=== PATIENT | male | born 1995 | race Hispanic/Latino ===

== ENCOUNTER 2019-02-07 20:21 | Emergency (ER) | payer SELFPAY ==
[2019-02-07] MEDS ORDERED: DEXAMETHASONE 10 MG/ML VIAL ONE (21:39)
[2019-02-07] MEDS ORDERED: FAMOTIDINE 20 MG TAB ONE (21:39)
--- NOTE | 2019-02-07 21:41 | ER ---
Nurse's Notes [facility] Name: Tramaine Ansari Age: 23 yrs Sex: Male : 1995 Arrival Date: 02/07/2019 Time: 20:25 Bed 25 Private MD: Diagnosis: Urticaria Presentation: 02/07 20:36 Presenting complaint: Patient states: States he develops slight rash with fresh mowed lp1 grass; Tonight states hives to general body, itching, heart racing; States taking Benadryl x2 30 min ago. Transition of care: patient was not received from another setting of care. Onset: The symptoms/episode began/occurred just prior to arrival. Anaphylaxis evaluation, no signs or symptoms of anaphylaxis were noted. Onset of symptoms was February 07, 2019 at 20:00. Risk Assessment: Do you want to hurt yourself or someone else? Patient reports no desire to harm self or others. Initial Sepsis Screen: Does the patient meet any 2 criteria? No. Patient's initial sepsis screen is negative. Does the patient have a suspected source of infection? No. Patient's initial sepsis screen is negative. Care prior to arrival: None. 20:36 Method Of Arrival: Ambulatory lp1 20:36 Acuity: JANET 3 lp1 Historical: - Allergies: 20:37 No Known Allergies; lp1 - Home Meds: 20:37 None [Active]; lp1 - PMHx: 20:37 None; lp1 - PSHx: 20:37 shoulder sx; lp1 - Immunization history:: Adult Immunizations up to date. - Social history:: Smoking status: Patient/guardian denies using tobacco. - Ebola Screening: : No symptoms or risks identified at this time. Screenin:48 Abuse screen: Denies threats or abuse. Denies injuries from another. Nutritional aj1 screening: No deficits noted. Tuberculosis screening: No symptoms or risk factors identified. 21:52 Fall Risk None identified. aj1 Assessment: 20:48 General: Appears in no apparent distress. comfortable, Behavior is calm, cooperative, aj1 appropriate for age. Pain: Denies pain. Neuro: Level of Consciousness is awake, alert, obeys commands, Oriented to person, place, time, situation. Cardiovascular: Heart tones S1 S2 present Patient's skin is warm and dry. Respiratory: Airway is patent Respiratory effort is even, unlabored, Respiratory pattern is regular, symmetrical, Breath sounds are clear bilaterally. Denies shortness of breath. GI: No signs and/or symptoms were reported involving the gastrointestinal system. : No signs and/or symptoms were reported regarding the genitourinary system. EENT: No signs and/or symptoms were reported regarding the EENT system. Derm: Rash noted that is itchy, red, raised, urticaria. Musculoskeletal: No signs and/or symptoms reported regarding the musculoskeletal system. Circulation, motion, and sensation intact. 21:51 Reassessment: Patient appears in no apparent distress at this time. No changes from aj1 previously documented assessment. Patient and/or family updated on plan of care and expected duration. Pain level reassessed. Patient is alert, oriented x 3, equal unlabored respirations, skin warm/dry/pink. Vital Signs: 20:37 BP 112 / 84; Pulse 128; Resp 18; Temp 98.5(TE); Pulse Ox 97% on R/A; Weight 76.2 kg; lp1 Height 6 ft. 0 in. (182.88 cm); 20:47 BP 127 / 86; Pulse 108; Resp 20; Pulse Ox 99% on R/A; aj1 21:52 BP 125 / 82; Pulse 95; Resp 18; Pulse Ox 99% on R/A; aj1 20:37 Body Mass Index 22.78 (76.20 kg, 182.88 cm) lp1 ED Course: 20:25 Patient arrived in ED. am2 20:37 Triage completed. lp1 20:38 Arm band placed on right wrist. lp1 20:43 Precious Brandt, RN is Primary Nurse. aj1 20:48 Patient has correct armband on for positive identification. Bed in low position. Call aj1 light in reach. Side rails up X 1. 20:48 No provider procedures requiring assistance completed. aj1 20:51 Felipe Jansen PA is PHCP. [facility] 20:51 Timothy Lopez MD is Attending Physician. [facility] 21:53 Patient did not have IV access during this emergency room visit. aj1 Administered Medications: 21:31 Drug: Pepcid 20 mg Route: PO; aj1 21:50 Follow up: Response: No adverse reaction aj1 21:32 Drug: Decadron 10 mg Route: IM; Site: left deltoid; aj1 21:50 Follow up: Response: No adverse reaction aj1 Outcome: 21:40 Discharge ordered by . kinza 21:54 Discharged to home ambulatory. aj1 21:54 Condition: good 21:54 Discharge instructions given to patient, Instructed on discharge instructions, follow up and referral plans. medication usage, Demonstrated understanding of instructions, follow-up care, medications, Prescriptions given X 3. 21:55 Patient left the ED. aj1 Signatures: Precious Brandt RN RN aj1 Felipe Jansen PA PA jmm Pena, Laura RN RN lp1 Lydia Waller am2 Corrections: (The following items were deleted from the chart) 21:54 21:54 Discharge instructions given to patient, Instructed on discharge instructions, aj1 follow up and referral plans. medication usage, Demonstrated understanding of instructions, follow-up care, medications, Prescriptions given X 2, aj1
--- NOTE | 2019-02-07 21:41 | EDPHYS ---
Physician Documentation [facility] Name: Tramaine Ansari Age: 23 yrs Sex: Male : 1995 Arrival Date: 02/07/2019 Time: 20:25 Bed 25 Private MD: ED Physician Timothy Lopez HPI: 02/07 21:13 This 23 yrs old Male presents to ER via Ambulatory with complaints of Allergic jmm Reaction, Rash. 21:13 The patient presents with itching, rash. Onset: The symptoms/episode began/occurred jmm acutely, today. Associated signs and symptoms: Pertinent positives: hives. This is a 23 year old male with no chronic medical conditions that presents to the ED with a pruretic rash beginning earlier today. Patient attributes the symptoms to exposure of freshly cut grass. Patient states his skin is normally sensitive to heat and he will frequently develop hives. Patient denies vomiting. . Historical: - Allergies: 20:37 No Known Allergies; lp1 - Home Meds: 20:37 None [Active]; lp1 - PMHx: 20:37 None; lp1 - PSHx: 20:37 shoulder sx; lp1 - Immunization history:: Adult Immunizations up to date. - Social history:: Smoking status: Patient/guardian denies using tobacco. - Ebola Screening: : No symptoms or risks identified at this time. ROS: 21:13 Constitutional: Negative for fever, chills, and weight loss, Cardiovascular: Negative jmm for chest pain, palpitations, and edema, Respiratory: Negative for shortness of breath, cough, wheezing, and pleuritic chest pain, Abdomen/GI: Negative for abdominal pain, nausea, vomiting, diarrhea, and constipation. 21:13 Skin: Positive for rash. 21:13 All other systems are negative. Exam: 21:13 Constitutional: This is a well developed, well nourished patient who is awake, alert, jmm and in no acute distress. Head/Face: atraumatic. Eyes: EOMI, no conjunctival erythema appreciated ENT: Moist Mucus Membranes Neck: Trachea midline, Supple Chest/axilla: Normal chest wall appearance and motion. Cardiovascular: Regular rate and rhythm. No edema appreciated 21:13 Abdomen/GI: Non distended, soft Back: Normal ROM 21:13 ENT: no pharyngeal edema appreciated. 21:13 Skin: hives noted to the neck, mild erythema noted to the thighs bilaterally. 21:13 Neuro: Orientation: is normal, Mentation: is normal, Memory: is normal. 21:13 Psych: Behavior/mood is pleasant, cooperative. Vital Signs: 20:37 BP 112 / 84; Pulse 128; Resp 18; Temp 98.5(TE); Pulse Ox 97% on R/A; Weight 76.2 kg; lp1 Height 6 ft. 0 in. (182.88 cm); 20:47 BP 127 / 86; Pulse 108; Resp 20; Pulse Ox 99% on R/A; aj1 21:52 BP 125 / 82; Pulse 95; Resp 18; Pulse Ox 99% on R/A; aj1 20:37 Body Mass Index 22.78 (76.20 kg, 182.88 cm) lp1 MDM: 21:13 Patient medically screened. [facility] 21:39 Data reviewed: vital signs, nurses notes. Counseling: I had a detailed discussion with [facility] the patient and/or guardian regarding: the historical points, exam findings, and any diagnostic results supporting the discharge/admit diagnosis, the need for outpatient follow up, to return to the emergency department if symptoms worsen or persist or if there are any questions or concerns that arise at home. 21:39 ED course: Patient is alert and non toxic in appearance in the ED. patient shows no [facility] signs of resp distress in the ED. patient prescribed epipen and given strict return precautions if symptoms worsen. patient understood and agrees with the plan of care. . Administered Medications: 21:31 Drug: Pepcid 20 mg Route: PO; aj1 21:50 Follow up: Response: No adverse reaction [facility] 21:32 Drug: Decadron 10 mg Route: IM; Site: left deltoid; aj1 21:50 Follow up: Response: No adverse reaction aj Disposition: 23:15 Co-signature as Attending Physician, Timothy Lopez MD. pkl Disposition: 02/07/19 21:40 Discharged to Home. Impression: Urticaria. - Condition is Stable. - Discharge Instructions: Hives. - Prescriptions for Hydroxyzine HCl 25 mg Oral Tablet - take 1 tablet by ORAL route every 6 hours As needed; 30 tablet. Prednisone 20 mg Oral Tablet - take 3 tablet by ORAL route once daily for 5 days; 15 tablet. EpiPen 0.3 mg Injection auto- injector - inject 1 pen by INTRAMUSCULAR route as directed Inject into the outer portion of the thigh, through clothing if necessary. Indicated in the emergency treatment of allergic reactions; 1 Container. - Medication Reconciliation Form, Thank You Letter, Antibiotic Education, Prescription Opioid Use form. - Follow up: Private Physician; When: 2 - 3 days; Reason: Recheck today's complaints, Continuance of care, Re-evaluation by your physician. Signatures: Precious Brandt RN RN aj1 Timothy Lopez MD MD pkl Mickail, Joel, PA PA jmm Pena, Laura, RN RN lp1 Corrections: (The following items were deleted from the chart) 21:55 21:40 02/07/2019 21:40 Discharged to Home. Impression: Urticaria. Condition is Stable. aj1 Forms are Medication Reconciliation Form, Thank You Letter, Antibiotic Education, Prescription Opioid Use. Follow up: Private Physician; When: 2 - 3 days; Reason: Recheck today's complaints, Continuance of care, Re-evaluation by your physician. kinza
== END 2019-02-07 21:55 | disposition home or self-care (01) ==
LOC: ER 20:21
DX: L50.9 Urticaria, unspecified (principal)
CPT/HCPCS: 96372; 99283; J1100

== ENCOUNTER 2020-10-30 07:22 | Emergency (ER) | payer SELFPAY ==
[2020-10-30 08:10] LABS: Protime INR 1.01
[2020-10-30] MEDS ORDERED: LORazepam 2 MG/ML VIAL ONE ×3 (08:10→11:57)
[2020-10-30 08:16] LABS: Basophils % 0.7 % (0-1.3); Lymphocytes % 12.1 % (15.3-44.8); MPV 7.8 fL (7.6-11.3); RBC Red Blood Cell Count 5.56 M/uL (4.33-5.43)
--- NOTE | 2020-10-30 09:06 | RAD REPORT ---
EXAM DESCRIPTION: CT - Head Brain Wo Cont - 10/30/2020 8:52 am CLINICAL HISTORY: SEIZURE Headache, drowsiness, seizure COMPARISON: No comparisons TECHNIQUE: All CT scans are performed using dose optimization technique as appropriate and may inclu de automated exposure control or mA/KV adjustment according to patient size. FINDINGS: No intracranial hemorrhage, hydrocephalus or extra-axial fluid collection.No areas of brai n edema or evidence of midline shift. The paranasal sinuses and mastoids are clear. The calvarium is intact. Right-sided scalp hematoma not ed. IMPRESSION: No acute intracranial abnormality.
[2020-10-30 09:07] LABS: ALT/SGPT 22 U/L (12-78); AST/SGOT 19 U/L (15-37); Albumin 3.4 g/dL (3.4-5.0); Alkaline Phosphatase 58 U/L (45-117); BUN Blood Urea Nitrogen 15 mg/dL (7-18); Bicarbonate 25 mmol/L (21-32); Bilirubin Direct 0.2 mg/dL (0-0.2); Bilirubin Total 1.2 mg/dL (0.2-1.0); Glucose Level 153 mg/dL (74-106); Potassium 3.8 mmol/L (3.5-5.1); Protein, Total 7.7 g/dL (6.4-8.2); Sodium Level 140 mmol/L (136-145)
[2020-10-30] MEDS ORDERED: NA CHLORIDE 0.9% 1,000 ML ONE ×3 (09:12→13:27)
[2020-10-30] MEDS ORDERED: MIDAZOLAM HCL 100 MG in NA CHLORIDE 0.9% 80 ML IV PRN (09:40)
[2020-10-30] MEDS ORDERED: MIDAZOLAM HCL 2 MG/2 ML INJ ONE ×2 (09:50→09:54)
[2020-10-30] MEDS ORDERED: FAMOTIDINE 20 MG/2 ML VIAL IV ONE (09:51)
[2020-10-30] MEDS ORDERED: CEFTRIAXONE/SWI 1gm 2 GM/20 ML SYR ONE (09:51)
[2020-10-30 09:54] LABS: Urine Blood NEGATIVE (NEG); Urine Glucose NEGATIVE (NEG); Urine Protein 1+ (NEG); Urine Specific Gravity >1.030 (1.005-1.030)
[2020-10-30] MEDS ORDERED: SUCCINYLCHOLINE 20 MG/ML (10 ML) IV ONE (09:55)
[2020-10-30 09:56] LABS: Barbiturates NEGATIVE (NEGATIVE); Benzodiazepines NEGATIVE (NEGATIVE); Cocaine NEGATIVE (NEGATIVE); METHAMPHETAM NEGATIVE (NEGATIVE); Methadone NEGATIVE (NEGATIVE); Opiates NEGATIVE (NEGATIVE); Phencyclidine NEGATIVE (NEGATIVE); THC Cannibis NEGATIVE (NEGATIVE)
[2020-10-30] MEDS ORDERED: FOSPHENYTOIN PE 1,000 MG in NA CHLORIDE 0.9% 100 ML IV ONE (10:00)
[2020-10-30] MEDS ORDERED: THIAMINE 200 MG/2 ML INJ ONE (10:11)
[2020-10-30] MEDS ORDERED: WATER FOR INJ,STERILE 10 ML ONE (10:36)
[2020-10-30] MEDS ORDERED: VECURONIUM 10 MG/VIAL IV ONE (10:36)
[2020-10-30] MEDS ORDERED: PANTOPRAZOLE 40 MG INJ ONE (10:36)
[2020-10-30] MEDS ORDERED: VANCOMYCIN/NS 1 gm 1 GM/250 ML BAG IV ONE (10:45)
[2020-10-30] MEDS ORDERED: NA CHLORIDE 0.9% 2,000 ML ONE (10:49)
[2020-10-30] MEDS ORDERED: FOLIC ACID 5 MG/ML VIAL ONE (10:50)
[2020-10-30 10:56] LABS: Arterial Blood Carboxyhemoglob 0.9 % (0-1.5); Blood Gas Oxyhemoglobin 96.9 % (94-97); Blood O2 Saturation 98.7 % (92-98.5)
--- NOTE | 2020-10-30 11:07 | ER ---
Nurse's Notes [facility] – [place], [place] Name: Tramaine Ansari Age: 25 yrs Sex: Male : 1995 Arrival Date: 10/30/2020 Time: 07:23 Bed 3 Private MD: Diagnosis: Altered mental status, unspecified;Elevated white blood cell count;Epileptic seizures related to external causes Presentation: 10/30 07:24 Chief complaint: EMS states: pt was found in the bathroom convulsing, seemed to be tw2 postictal, never really returned to his baseline, pts family state he was getting ready for work, eyes are dilated, the family stated he just started taking some medication from [place] that were Naproxen and Doxycycline for an arm infection, no known medical history, nkda. Coronavirus screen: At this time, the client does not indicate any symptoms associated with coronavirus-19. Ebola Screen: Patient denies travel to an Ebola-affected area in the 21 days before illness onset. Initial Sepsis Screen: Does the patient meet any 2 criteria? HR > 90 bpm. Does the patient have a suspected source of infection? No. Patient's initial sepsis screen is negative. Risk Assessment: Do you want to hurt yourself or someone else? Patient reports no desire to harm self or others. Onset of symptoms was October 30, 2020. 07:24 Method Of Arrival: EMS: [facility] tw2 07:24 Acuity: JANET 2 tw2 Triage Assessment: 07:25 General: Appears slender, Behavior is restless, uncooperative. Pain: Unable to use pain tw2 scale. Patient is disoriented. EENT: dried blood noted around upper lip and mustache. Neuro: Level of Consciousness is post ictal, Oriented to none. Cardiovascular: Heart tones S1 S2 Patient's skin is warm and dry. Respiratory: Airway is patent Respiratory effort is even, unlabored, Respiratory pattern is regular, symmetrical, Breath sounds are clear bilaterally. GI: No signs and/or symptoms were reported involving the gastrointestinal system. Abdomen is flat, Bowel sounds present X 4 quads. Musculoskeletal: Circulation, motion, and sensation intact. Range of motion: intact in all extremities. Historical: - Allergies: 07:27 No Known Allergies; tw2 - PMHx: 07:27 None; tw2 - PSHx: 07:27 shoulder sx; tw2 - Immunization history:: Adult Immunizations unknown. - Social history:: Smoking status: unknown. Screenin:30 Abuse screen: Denies threats or abuse. Nutritional screening: No deficits noted. tw2 Tuberculosis screening: No symptoms or risk factors identified. Fall Risk Secondary diagnosis (15 points) impaired mobility. Assessment: 07:58 Reassessment: pt incontinent of urine at this time, pt placed on clean sheet at this tw2 time, pt remains restless, provider notified. 08:26 Reassessment: No changes from previously documented assessment. pt remains restless, tw2 provider notified. 08:35 Reassessment: pt still restless and rolling around in the bed, provider notified that tw2 CT staff was at bedside ready to take to imaging at this time, medicated as ordered. 08:51 Reassessment: pt back from CT at this time, remains restless, gathering supplies and tw2 staff to help clean and roll pt over while changing the sheets at this time. 09:20 Reassessment: PT CLEANED OF INCONTINENCE, REMAINS AOx0, GCS 9. PT UNCOOPERATIVE, NOT bp RESPONDING TO VERBAL REDIRECTION. RESTRAINTS PLACED FOR PT SAFETY, AT B/S. PT UNABLE TO ARTICULATE RESTRAINT RELEASE CRITERIA. 10:10 Respiratory: Ventilator assessment: ET Tube: 7.5 23 cm at lip. Tidal Volume: 600 tw2 Respiratory Rate: 16 FiO2: 28% PEEP: none. 11:15 Reassessment: pt remains sedated and intubated at this time, ongoing need for tw2 restraints documented. 11:48 Reassessment: pt shivering and restless at this time, provider notified and medicated tw2 as ordered. 12:43 Reassessment: No changes from previously documented assessment. tw2 13:07 Reassessment: EMS here for transport at this time, pt remains sedated and intubated. tw2 Vital Signs: 07:24 BP 117 / 78; Pulse 95; Resp 18; Pulse Ox 100% on R/A; Weight 79.38 kg; Height 5 ft. 6 tw2 in. (167.64 cm); 07:38 Temp 97.9(TE); tw2 08:26 BP 119 / 65; Pulse 115; Resp 19; Pulse Ox 97% on R/A; tw2 09:22 BP 139 / 63; Pulse 114; Resp 18; Pulse Ox 99% on R/A; tw2 10:00 BP 131 / 71; Pulse 105; Resp 19; Pulse Ox 100% on R/A; tw2 10:10 BP 125 / 64; Pulse 98; Resp 19; Pulse Ox 100% on R/A; tw2 10:30 BP 119 / 51; Pulse 101; Resp 18; Pulse Ox 100% on ETT vent; tw2 10:45 BP 119 / 106; Pulse 112; Resp 19; Pulse Ox 100% on ETT vent; tw2 11:00 BP 133 / 84; Pulse 116; Resp 17; Pulse Ox 100% on ETT vent; tw2 11:05 BP 135 / 87; Pulse 118; Resp 16; Temp 97.7(C); Pulse Ox 100% on 28% FiO2 ETT vent; tw2 11:35 BP 83 / 63; Pulse 133; Resp 14; Temp 98.7(C); Pulse Ox 100% on ETT vent; tw2 11:49 BP 97 / 57; Pulse 125; Resp 19; Temp 99.4(C); Pulse Ox 100% on ETT vent; tw2 11:55 BP 103 / 53; Pulse 134; Resp 25; Temp 99.7(C); Pulse Ox 100% on ETT vent; tw2 12:10 BP 99 / 49; Pulse 122; Resp 19; Pulse Ox 100% on ETT vent; tw2 12:23 BP 105 / 42; Pulse 130; Resp 22; Temp 101.0(C); Pulse Ox 100% on ETT vent; tw2 12:30 BP 144 / 44; Pulse 132; Resp 21; Temp 101.4(C); Pulse Ox 100% on ETT vent; tw2 12:42 BP 101 / 42; Pulse 133; Resp 28; Temp 101.6(C); Pulse Ox 100% on ETT vent; tw2 13:00 BP 93 / 36; Pulse 130; Resp 19; Temp 101.8(C); Pulse Ox 100% on ETT vent; tw2 13:05 BP 94 / 42; Pulse 134; Resp 24; Temp 101.9(C); Pulse Ox 100% on ETT vent; tw2 07:24 Body Mass Index 28.25 (79.38 kg, 167.64 cm) tw2 11:35 provider notified of BP and HR at this time tw2 12:42 provider aware of HR and temperature at this time. tw2 [place] Coma Score: 07:25 Eye Response: spontaneous(4). Verbal Response: none(1). Motor Response: withdraws from tw2 pain(4). Total: 9. ED Course: 07:23 Patient arrived in ED. tw2 07:25 Lewis Chang MD is Attending Physician. [facility] 07:27 Triage completed. tw2 07:29 Arm band placed on. tw2 07:29 Bed in low position. Side rails up X2. Adult w/ patient. Seizure precautions initiated. tw2 pts sister is at bedside at this time. 07:32 Alexa Bates, BRIDGETTE is Primary Nurse. tw2 07:53 Inserted saline lock: 20 gauge in left forearm, using aseptic technique. Blood tw2 collected. Inserted saline lock: 20 gauge in left forearm, using aseptic technique. 08:06 Radiology exam delayed due to rn to call when ready for ct scan. sj 08:52 CT Head Brain wo Cont In Process Unspecified. EDMS 09:07 CT completed. Patient moved back from CT. sw 09:25 Straight cath inserted, using sterile technique, 18 Fr. Specimen obtained. by BIRDGETTE Church tw2 Returned clear yellow urine. Patient tolerated well. 10:10 Assisted provider with intubation using 7.5 mm ETT via oral route. ET tube secured at tw2 23cm at the teeth. Set up intubation tray. Intubated by Lewis Chang MD Placement verified by CO2 detector w/ + color change, auscultating bilateral breath sounds, Patient tolerated well. 10:30 Assisted provider with central line placement. Set up central line tray. Triple lumen tw2 line placed in right femoral. Line placed by Lewis Chang MD Placement verified by blood return, Dressed with Tegaderm, Blood was collected. Patient tolerated well. Before procedure, did Practitioner(s) obtain informed consent? Yes. 10:45 Assist provider with lumbar puncture: Set up LP tray. Performed by Lewis Chang MD tw2 CSF is clear. Puncture site dressed with band aid, 4X4s, Procedure was successful. Patient tolerated well. 11:11 XRAY Chest (1 view) In Process Unspecified. EDMS 13:08 Report given to BRIDGETTE Oconnell at [facility]. tw2 13:08 Patient admitted, IV remains in place. tw2 13:26 One on one care 4.5 hours. tw2 Restraints: 09:15 Non-Violent Restraint: Order obtained. Initiated on October 30, 2020 at 09:15 Unable bp to provide Restraint education. PT UNABLE TO COMPREHEND. Actions/Behavior observed: Confused/disoriented, has difficulty remembering/follow instructions, has impaired decision making, has decreased level of consciousness, unable to follow instructions, Less restrictive alternatives attempted: decrease environmental stimuli, placed near Nurse station, reoriented to location, family at bedside, medications evaluated, medicated for pain/anxiety, repositioned, verbal de-escalation performed, Alternative interventions: Ineffective. Clinical justification for use: patient safety, Mental status: confused, Cognition: poor judgement, poor safety awareness, poor attention/concentration, unable to follow commands, Circulation: Within defined parameters (based on Cardiovascular assessment) Skin integrity: Within defined parameters (based on Integumentary assessment) Signs of injury related to restraint: No injuries noted. Range of Motion (ROM): declined. Hydration/Food: patient declined. Elimination/Hygiene: diapers changed. Restraint status: Soft wrist restraint (Right) Started. Soft wrist restraint (Left) Started. Soft ankle restraint (Right) Started. Soft ankle restraint (Left) Started. Criteria to discontinue Restraint not met. Restraint continued. 11:15 Non-Violent Restraint: Mental status: agitated/restless, Cognition: Unable to assess. tw2 Circulation: Within defined parameters (based on Cardiovascular assessment) Skin integrity: Within defined parameters (based on Integumentary assessment) Signs of injury related to restraint: No injuries noted. Range of Motion (ROM): performed. Restraint status: Soft wrist restraint (Right) Continued. Soft wrist restraint (Left) Continued. Soft ankle restraint (Right) Continued. Soft ankle restraint (Left) Continued. Criteria to discontinue Restraint not met. Restraint continued. Administered Medications: 07:58 Drug: Ativan 1 mg Route: IVP; Site: left forearm; tw2 08:25 Follow up: Response: No adverse reaction; No change in condition tw2 08:25 Drug: Ativan 1 mg Route: IVP; Site: left forearm; tw2 08:40 Follow up: Response: No adverse reaction; No change in condition tw2 08:39 Drug: Ativan 1 mg Route: IVP; Site: left forearm; tw2 09:29 Follow up: Response: No adverse reaction; No change in condition tw2 09:26 Drug: NS 0.9% 1000 ml Route: IV; Rate: 1 bolus; Site: left forearm; tw2 10:31 Follow up: Response: No adverse reaction; IV Status: Completed infusion; IV Intake: tw2 1000ml 09:29 Drug: Ativan 1 mg Route: IVP; Site: left forearm; tw2 09:40 Follow up: Response: No adverse reaction tw2 09:47 Drug: Pepcid 20 mg Route: IVP; Site: left forearm; tw2 10:29 Follow up: Response: No adverse reaction tw2 10:05 Drug: Fosphenytoin 1 grams Route: IVPB; Site: left forearm; tw2 10:20 Follow up: IV Status: Completed infusion; IV Intake: 50ml tw2 10:09 Drug: Versed 5 mg Route: IVP; Site: left forearm; tw2 11:46 Follow up: Response: No adverse reaction tw2 10:10 Drug: Succinylcholine 75 mg Route: IVP; Site: left forearm; tw2 11:34 Follow up: Response: No adverse reaction tw2 10:19 Drug: Versed 100 mg Route: IV; Rate: 5 mg/hr; Site: left forearm; tw2 11:05 Follow up: 5 mg bolus administered per VO md at bedside at 1019 tw2 11:28 Follow up: Rate change 8 mg/hr tw2 12:02 Follow up: 5 mg versed given as bolus per VO of Dr. Chang at bedside at this time. tw2 13:23 Follow up: IV Status: Infusion continued upon transfer tw2 10:25 Drug: VecuroNIUM 7 mg Route: IVP; Site: left forearm; tw2 11:08 Follow up: Response: No adverse reaction aa5 10:28 Drug: ProTONIX 40 mg Route: IVP; Site: left forearm; tw2 11:33 Follow up: Response: No adverse reaction tw2 10:30 Drug: NS 0.9% 1000 ml Route: IV; Rate: 1 bolus; Site: left forearm; tw2 11:30 Follow up: Response: No adverse reaction; IV Status: Completed infusion; IV Intake: tw2 1000ml 10:30 Drug: NS 0.9% 1000 ml Route: IV; Rate: 125 ml/hr; Site: left forearm; tw2 10:32 Drug: Thiamine 100 mg Route: IV; Rate: bolus; Site: left forearm; tw2 10:32 Follow up: IV Status: Completed infusion; IV Intake: 1ml tw2 10:34 Drug: foLIC Acid 1 mg Route: IVPB; Site: left forearm; tw2 10:34 Follow up: IV Status: Completed infusion; IV Intake: 1ml tw2 11:25 Drug: Rocephin 2 grams Route: IV; Rate: per protocol; Site: right femoral; tw2 11:30 Follow up: Response: No adverse reaction; IV Status: Completed infusion; IV Intake: [id number] 11:25 Drug: vancoMYCIN 1 grams Route: IVPB; Infused Over: 2 hrs; Site: right femoral; tw2 13:24 Follow up: Response: No adverse reaction; IV Status: Completed infusion; IV Intake: tw2 250ml 11:48 Drug: Ativan 2 mg Route: IVP; Site: right femoral; tw2 13:24 Follow up: Response: No adverse reaction tw2 12:03 Drug: Tylenol Suppository 650 mg Route: UT; aa5 13:23 Follow up: Response: No adverse reaction; Temperature is unchanged tw2 12:04 Drug: NS 0.9% 500 ml Route: IV; Rate: bolus; Site: left forearm; tw2 12:41 Follow up: Response: No adverse reaction; IV Status: Completed infusion; IV Intake: tw2 500ml 12:19 Drug: Acyclovir (20mg/kg) 800 mg Route: IVPB; Site: right femoral; tw2 13:24 Follow up: IV Status: Completed infusion; IV Intake: 100ml tw2 Intake: 10:20 IV: 50ml; Total: 50ml. tw2 10:31 IV: 1000ml; Total: 1050ml. tw2 10:32 IV: 1ml; Total: 1051ml. tw2 10:34 IV: 1ml; Total: 1052ml. tw2 11:30 IV: 20ml; Total: 1072ml. tw2 11:30 IV: 1000ml; Total: 2072ml. tw2 12:41 IV: 500ml; Total: 2572ml. tw2 13:24 IV: 100ml; Total: 2672ml. tw2 13:24 IV: 250ml; Total: 2922ml. tw2 Output: 13:07 Urine: 200ml ([place]); Total: 200ml. tw2 Outcome: 11:06 ER care complete, transfer ordered by MD. carter 13:07 Transferred by ground EMS to [facility]. tw2 13:07 critical 13:07 Instructed on the need for transfer. 13:26 Patient left the ED. 2 Signatures: Dispatcher [employer] EDMS Lewis Chang MD MD cha Jones, Susan sj Calderon, Audri, RN RN aa5 Leonela Hilton Tara RN RN tw2 Kar Marie, RN RN bp Corrections: (The following items were deleted from the chart) 08:25 07:58 Reassessment: pt incontinent of urine at this time. tw2 tw2
--- NOTE | 2020-10-30 11:07 | EDPHYS ---
Physician Documentation [facility] Name: Tramaine Ansari Age: 25 yrs Sex: Male : 1995 Arrival Date: 10/30/2020 Time: 07:23 Bed 3 Private MD: ED Physician Lewis Chang HPI: 10/30 09:32 This 25 yrs old Male presents to ER via EMS with complaints of Probable raul Seizure, Altered Mental Status. 09:32 The patient presents after having a single isolated seizure, that lasted 3 minute(s). raul Character of seizure(s): Loss of consciousness: the patient experienced loss of consciousness, Motor activity: generalized, Incontinence: incontinent of bladder. Seizure onset: just prior to arrival. Context: the seizure(s) was witnessed, by family. Seizure Hx: the patient has no previous seizure history. Associated injury: Head/face:. EMS care: none. Current symptoms: confusion. The patient has not experienced similar symptoms in the past. Historical: - Allergies: 07:27 No Known Allergies; tw2 - PMHx: 07:27 None; tw2 - PSHx: 07:27 shoulder sx; tw2 - Immunization history:: Adult Immunizations unknown. - Social history:: Smoking status: unknown. ROS: 09:32 Constitutional: Negative for fever, chills, and weight loss, Eyes: Negative for injury, raul pain, redness, and discharge, ENT: Negative for injury, pain, and discharge, Neck: Negative for injury, pain, and swelling, Cardiovascular: Negative for chest pain, palpitations, and edema, Respiratory: Negative for shortness of breath, cough, wheezing, and pleuritic chest pain, Abdomen/GI: Negative for abdominal pain, nausea, vomiting, diarrhea, and constipation, Back: Negative for injury and pain, : Negative for injury, bleeding, discharge, and swelling, MS/Extremity: Negative for injury and deformity, Skin: Negative for injury, rash, and discoloration, Psych: Negative for depression, anxiety, suicide ideation, homicidal ideation, and hallucinations, Allergy/Immunology: Negative for hives, rash, and allergies, Endocrine: Negative for neck swelling, polydipsia, polyuria, polyphagia, and marked weight changes, Hematologic/Lymphatic: Negative for swollen nodes, abnormal bleeding, and unusual bruising. 09:32 Neuro: Positive for altered mental status, seizure activity. Exam: 09:32 Constitutional: This is a well developed, well nourished patient who is awake, alert, raul and in no acute distress. Head/Face: Normocephalic, atraumatic. Eyes: Pupils equal round and reactive to light, extra-ocular motions intact. Lids and lashes normal. Conjunctiva and sclera are non-icteric and not injected. Cornea within normal limits. Periorbital areas with no swelling, redness, or edema. ENT: Nares patent. No nasal discharge, no septal abnormalities noted. Tympanic membranes are normal and external auditory canals are clear. Oropharynx with no redness, swelling, or masses, exudates, or evidence of obstruction, uvula midline. Mucous membranes moist. Neck: Trachea midline, no thyromegaly or masses palpated, and no cervical lymphadenopathy. Supple, full range of motion without nuchal rigidity, or vertebral point tenderness. No Meningismus. Chest/axilla: Normal chest wall appearance and motion. Nontender with no deformity. No lesions are appreciated. Respiratory: Lungs have equal breath sounds bilaterally, clear to auscultation and percussion. No rales, rhonchi or wheezes noted. No increased work of breathing, no retractions or nasal flaring. Abdomen/GI: Soft, non-tender, with normal bowel sounds. No distension or tympany. No guarding or rebound. No evidence of tenderness throughout. Back: No spinal tenderness. No costovertebral tenderness. Full range of motion. Male : Normal genitalia with no discharge or lesions. Skin: Warm, dry with normal turgor. Normal color with no rashes, no lesions, and no evidence of cellulitis. MS/ Extremity: Pulses equal, no cyanosis. Neurovascular intact. Full, normal range of motion. Psych: Awake, alert, with orientation to person, place and time. Behavior, mood, and affect are within normal limits. 09:32 Neck: ROM/movement: is normal, no acute changes, Meningeal signs: are not present, Kernig's sign is negative, Brudzinski's sign is negative. 09:32 Cardiovascular: Rate: tachycardic, Rhythm: regular, Pulses: Pulses are 4+ in bilateral radial, brachial, femoral, popliteal, posterior tibial and and dorsalis pedis arteries.. Heart sounds: normal, Edema: is not appreciated, JVD: is not appreciated. 11:18 ECG was reviewed by the Attending Physician. raul Vital Signs: 07:24 BP 117 / 78; Pulse 95; Resp 18; Pulse Ox 100% on R/A; Weight 79.38 kg; Height 5 ft. 6 tw2 in. (167.64 cm); 07:38 Temp 97.9(TE); tw2 08:26 BP 119 / 65; Pulse 115; Resp 19; Pulse Ox 97% on R/A; tw2 09:22 BP 139 / 63; Pulse 114; Resp 18; Pulse Ox 99% on R/A; tw2 10:00 BP 131 / 71; Pulse 105; Resp 19; Pulse Ox 100% on R/A; tw2 10:10 BP 125 / 64; Pulse 98; Resp 19; Pulse Ox 100% on R/A; tw2 10:30 BP 119 / 51; Pulse 101; Resp 18; Pulse Ox 100% on ETT vent; tw2 10:45 BP 119 / 106; Pulse 112; Resp 19; Pulse Ox 100% on ETT vent; tw2 11:00 BP 133 / 84; Pulse 116; Resp 17; Pulse Ox 100% on ETT vent; tw2 11:05 BP 135 / 87; Pulse 118; Resp 16; Temp 97.7(C); Pulse Ox 100% on 28% FiO2 ETT vent; tw2 11:35 BP 83 / 63; Pulse 133; Resp 14; Temp 98.7(C); Pulse Ox 100% on ETT vent; tw2 11:49 BP 97 / 57; Pulse 125; Resp 19; Temp 99.4(C); Pulse Ox 100% on ETT vent; tw2 11:55 BP 103 / 53; Pulse 134; Resp 25; Temp 99.7(C); Pulse Ox 100% on ETT vent; tw2 12:10 BP 99 / 49; Pulse 122; Resp 19; Pulse Ox 100% on ETT vent; tw2 12:23 BP 105 / 42; Pulse 130; Resp 22; Temp 101.0(C); Pulse Ox 100% on ETT vent; tw2 12:30 BP 144 / 44; Pulse 132; Resp 21; Temp 101.4(C); Pulse Ox 100% on ETT vent; tw2 12:42 BP 101 / 42; Pulse 133; Resp 28; Temp 101.6(C); Pulse Ox 100% on ETT vent; tw2 13:00 BP 93 / 36; Pulse 130; Resp 19; Temp 101.8(C); Pulse Ox 100% on ETT vent; tw2 13:05 BP 94 / 42; Pulse 134; Resp 24; Temp 101.9(C); Pulse Ox 100% on ETT vent; tw2 07:24 Body Mass Index 28.25 (79.38 kg, 167.64 cm) tw2 11:35 provider notified of BP and HR at this time tw2 12:42 provider aware of HR and temperature at this time. tw2 Mary Coma Score: 07:25 Eye Response: spontaneous(4). Verbal Response: none(1). Motor Response: withdraws from tw2 pain(4). Total: 9. Procedures: 11:00 Lumbar Puncture: Patient placed in left lateral decubitus position. Collected 20 ml's raul of clear fluid. Puncture site dressed with band aid, Patient tolerated well. Intubation: Ventilated with 100% NRB prior to procedure. Intubated orally using # 4 Pepper blade with 7.5 mm ETT. Successful on second attempt. Ventilated with Ambu bag. Tube secured at right side of mouth measured 23 cm at lip. Placement verified by CXR, CO2 detector with (+) color change, auscultating bilateral breath sounds, O2 saturation after procedure was 100 %. Central Line: the site was prepped with Betadine, in sterile fashion, a triple lumen catheter was inserted, in the right femoral vein, in 1 attempts. placement was verified, by CXR, by blood return, the site was dressed with 4X4s, the patient tolerated the procedure, well. MDM: 07:25 Patient medically screened. raul 09:35 Differential diagnosis: cerebral vascular accident, drug overdose, cardiac arrhythmia, raul seizure. Data reviewed: vital signs, nurses notes, lab test result(s), EKG, radiologic studies, CT scan, plain films. Data interpreted: court monitor: rate is 115 beats/min, rhythm is regular, Pulse oximetry: on room air is 97 %. Test interpretation: by ED physician or midlevel provider: ECG, plain radiologic studies. Counseling: I had a detailed discussion with the patient and/or guardian regarding: the historical points, exam findings, and any diagnostic results supporting the discharge/admit diagnosis, lab results, radiology results, the need for further work-up and treatment in the hospital. 10/30 07:26 Order name: Acetaminophen; Complete Time: 09:23 [facility] 10/30 07:26 Order name: Basic Metabolic Panel; Complete Time: 09:23 [facility] 10/30 07:26 Order name: CBC with Diff; Complete Time: 09:23 [facility] 10/30 07:26 Order name: ETOH Level; Complete Time: 09:23 [facility] 10/30 07:26 Order name: Hepatic Function; Complete Time: 09:23 [facility] 10/30 07:26 Order name: PT-INR; Complete Time: 09:23 [facility] 10/30 07:26 Order name: Ptt, Activated; Complete Time: 09:23 [facility] 10/30 07:26 Order name: Salicylate; Complete Time: 09:23 [facility] 10/30 07:26 Order name: Urine Drug Screen; Complete Time: 10:03 [facility] 10/30 08:04 Order name: Glucose, Ancillary Testing; Complete Time: 09:23 [facility] 10/30 09:23 Order name: Urine Dipstick--Ancillary (enter results); Complete Time: 10:03 10/30 09:30 Order name: Magnesium [facility] 10/30 09:30 Order name: NT PRO-BNP [facility] 10/30 09:30 Order name: Troponin (emerg Dept Use Only) [facility] 10/30 07:26 Order name: CT Head Brain wo Cont; Complete Time: 09:23 [facility] 10/30 09:30 Order name: XRAY Chest (1 view); Complete Time: 11:32 [facility] 10/30 09:30 Order name: Blood Culture Adult (2) [facility] 10/30 09:30 Order name: Lactate [facility] 10/30 09:30 Order name: Procalcitonin [facility] 10/30 09:30 Order name: Spinal Fluid Profile: see paper orders [facility] 10/30 09:30 Order name: Flu; Complete Time: 12:13 [facility] 10/30 10:53 Order name: ABG; Complete Time: 10:59 10/30 11:39 Order name: CSF Culture [facility] 10/30 11:39 Order name: CSF Bacterial Antigens (Tube 1 [facility] 10/30 11:39 Order name: Body Fluid Cell Count; Complete Time: 12:13 [facility] 10/30 12:11 Order name: SARS-COV-2 RT PCR; Complete Time: 12:13 [facility] 10/30 07:26 Order name: EKG; Complete Time: 07:27 [facility] 10/30 07:26 Order name: EKG - Nurse/Tech; Complete Time: 11:45 [facility] 10/30 07:26 Order name: IV Saline Lock; Complete Time: 07:58 [facility] 10/30 07:26 Order name: Labs collected and sent; Complete Time: 07:58 [facility] 10/30 07:26 Order name: Urine Dipstick-Ancillary (obtain specimen); Complete Time: 11:45 [facility] 10/30 07:26 Order name: Seizure Precautions; Complete Time: 07:32 [facility] 10/30 08:59 Order name: Straight Cath - Urine; Complete Time: 09:26 [facility] 10/30 09:27 Order name: Restraint:Non-Violent; Complete Time: 09:29 [facility] 10/30 09:30 Order name: Cardiac monitoring; Complete Time: 11:44 [facility] 10/30 09:30 Order name: O2 Per Protocol; Complete Time: 10:30 [facility] 10/30 09:30 Order name: O2 Sat Monitoring; Complete Time: 10:30 [facility] 10/30 09:30 Order name: IV Saline Lock - Large Bore; Complete Time: 11:45 [facility] 10/30 09:30 Order name: Lumbar Puncture Setup; Complete Time: 10:29 [facility] 10/30 09:30 Order name: Misc. Order: versed drip, titrate; Complete Time: 10:29 [facility] 10/30 10:30 Order name: Central Line Kit; Complete Time: 10:31 [facility] 10/30 11:16 Order name: Labs - recollect needed: recollect lactate,c7; Complete Time: 11:45 bd EC:18 Rate is 123 beats/min. Rhythm is regular. QRS [place] is Normal. AL interval is normal. [facility] QRS interval is normal. QT interval is normal. No Q waves. T waves are Normal. No ST changes noted. Clinical impression: Sinus tachycardia and No evidence of ischemia. Interpreted by me. Reviewed by me. Administered Medications: 07:58 Drug: Ativan 1 mg Route: IVP; Site: left forearm; tw2 08:25 Follow up: Response: No adverse reaction; No change in condition tw2 08:25 Drug: Ativan 1 mg Route: IVP; Site: left forearm; tw2 08:40 Follow up: Response: No adverse reaction; No change in condition tw2 08:39 Drug: Ativan 1 mg Route: IVP; Site: left forearm; tw2 09:29 Follow up: Response: No adverse reaction; No change in condition tw2 09:26 Drug: NS 0.9% 1000 ml Route: IV; Rate: 1 bolus; Site: left forearm; tw2 10:31 Follow up: Response: No adverse reaction; IV Status: Completed infusion; IV Intake: tw2 1000ml 09:29 Drug: Ativan 1 mg Route: IVP; Site: left forearm; tw2 09:40 Follow up: Response: No adverse reaction tw2 09:47 Drug: Pepcid 20 mg Route: IVP; Site: left forearm; tw2 10:29 Follow up: Response: No adverse reaction tw2 10:05 Drug: Fosphenytoin 1 grams Route: IVPB; Site: left forearm; tw2 10:20 Follow up: IV Status: Completed infusion; IV Intake: 50ml tw2 10:09 Drug: Versed 5 mg Route: IVP; Site: left forearm; tw2 11:46 Follow up: Response: No adverse reaction tw2 10:10 Drug: Succinylcholine 75 mg Route: IVP; Site: left forearm; tw2 11:34 Follow up: Response: No adverse reaction tw2 10:19 Drug: Versed 100 mg Route: IV; Rate: 5 mg/hr; Site: left forearm; tw2 11:05 Follow up: 5 mg bolus administered per VO md at bedside at 1019 tw2 11:28 Follow up: Rate change 8 mg/hr tw2 12:02 Follow up: 5 mg versed given as bolus per VO of Dr. Chang at bedside at this time. tw2 13:23 Follow up: IV Status: Infusion continued upon transfer tw2 10:25 Drug: VecuroNIUM 7 mg Route: IVP; Site: left forearm; tw2 11:08 Follow up: Response: No adverse reaction aa5 10:28 Drug: ProTONIX 40 mg Route: IVP; Site: left forearm; tw2 11:33 Follow up: Response: No adverse reaction tw2 10:30 Drug: NS 0.9% 1000 ml Route: IV; Rate: 1 bolus; Site: left forearm; tw2 11:30 Follow up: Response: No adverse reaction; IV Status: Completed infusion; IV Intake: tw2 1000ml 10:30 Drug: NS 0.9% 1000 ml Route: IV; Rate: 125 ml/hr; Site: left forearm; tw2 10:32 Drug: Thiamine 100 mg Route: IV; Rate: bolus; Site: left forearm; tw2 10:32 Follow up: IV Status: Completed infusion; IV Intake: 1ml tw2 10:34 Drug: foLIC Acid 1 mg Route: IVPB; Site: left forearm; tw2 10:34 Follow up: IV Status: Completed infusion; IV Intake: 1ml tw2 11:25 Drug: Rocephin 2 grams Route: IV; Rate: per protocol; Site: right femoral; tw2 11:30 Follow up: Response: No adverse reaction; IV Status: Completed infusion; IV Intake: [id number] 11:25 Drug: vancoMYCIN 1 grams Route: IVPB; Infused Over: 2 hrs; Site: right femoral; tw2 13:24 Follow up: Response: No adverse reaction; IV Status: Completed infusion; IV Intake: tw2 250ml 11:48 Drug: Ativan 2 mg Route: IVP; Site: right femoral; tw2 13:24 Follow up: Response: No adverse reaction tw2 12:03 Drug: Tylenol Suppository 650 mg Route: AL; aa5 13:23 Follow up: Response: No adverse reaction; Temperature is unchanged tw2 12:04 Drug: NS 0.9% 500 ml Route: IV; Rate: bolus; Site: left forearm; tw2 12:41 Follow up: Response: No adverse reaction; IV Status: Completed infusion; IV Intake: tw2 500ml 12:19 Drug: Acyclovir (20mg/kg) 800 mg Route: IVPB; Site: right femoral; tw2 13:24 Follow up: IV Status: Completed infusion; IV Intake: 100ml tw2 Disposition: 10/30/20 11:06 Transfer ordered to [facility]. Diagnosis are Altered mental status, unspecified, Elevated white blood cell count, Epileptic seizures related to external causes. - Reason for transfer: Higher level of care. - Accepting physician is to [facility]. - Condition is Fair. - Problem is new. - Symptoms have improved. Signatures: Dispatcher [employer] EDMS Minnie Fierro Corey, MD MD cha Calderon, Audri, RN RN aa5 Alexa Bates, RN RN tw2 Corrections: (The following items were deleted from the chart) 10:49 10:46 ARTERIAL BLOOD GAS ordered. [facility] EDMS 11:13 09:31 CORONAVIRUS+ ordered. [facility] EDUT 13:26 11:06 10/30/2020 11:06 Transfer ordered to [facility]. tw2 Diagnosis is Altered mental status, unspecified; Elevated white blood cell count; Epileptic seizures related to external causes. Reason for transfer: Higher level of care. Accepting physician is to [facility]. Condition is Fair. Problem is new. Symptoms have improved. raul
--- NOTE | 2020-10-30 11:25 | RAD REPORT ---
EXAM DESCRIPTION: RAD - Chest Single View - 10/30/2020 11:11 am CLINICAL HISTORY: COUGH Chest pain. COMPARISON: Chest Pa And Lat (2 Views) dated 10/06/2020No comparisons FINDINGS: Portable technique limits examination quality. The lungs are grossly clear. The heart is normal in size. ET tube tip is above the glen.Enteric tub e descends into the stomach.
[2020-10-30 12:00] LABS: Body Fluid Source CSF; Color of fluid Colorless (COLORLESS)
[2020-10-30 12:01] LABS: Appearance CLEAR (CLEAR); Body Fluid WBC 3 /mm^3
[2020-10-30 12:02] LABS: Appearance CLEAR (CLEAR); Body Fluid Source CSF; Color of fluid Colorless (COLORLESS)
[2020-10-30 12:03] LABS: Body Fluid WBC 1 /mm^3
[2020-10-30 12:14] LABS: CSF Glucose 68 mg/dL (40-70)
[2020-10-30 12:19] LABS: Magnesium 1.9 mg/dL (1.8-2.4); NT PRO-BNP 14 pg/mL (<125); Troponin (Emerg Dept Use Only) < 0.02 ng/mL (0.0-0.045)
[2020-10-30] MEDS ORDERED: ACETAMINOPHEN 650MG/RECT SUPP PR ONE (12:19)
[2020-10-30] MEDS ORDERED: ACYCLOVIR INJ 800 MG in NA CHLORIDE 0.9% 100 ML IVPB ONE (12:30)
--- NOTE | 2020-10-30 19:13 | EKG ---
Test Date: 2020-10-30 Test Time: 11:13:23 Precast Molder: ARCHIE MEASUREMENT RESULTS: Intervals: Rate: 123 MO: 148 QRSD: 90 QT: 322 QTc: 460 [place]: P: 86 MO: 148 QRS: 98 T: 64 INTERPRETIVE STATEMENTS: Sinus tachycardia Rightward axis Borderline ECG No previous ECG available for comparison Electronically Signed On 10-30-20 19:12:37 [employer] STATISTICAL PROGRAMMER by Merlin Antonio
[2020-11-01 02:24] VITALS: O2SAT 100
[2020-11-01 02:42] VITALS: BP 94/42; TEMP 101.9
== END 2020-10-30 13:26 | disposition short-term general hospital (02) ==
LOC: ER 07:22
PROC: 009U3ZX Drainage of Spinal Canal, Percutaneous Approach, Diagnostic (ICD-10-PCS; principal; 2020-10-30)
PROC: 0BH17EZ Insertion of Endotracheal Airway into Trachea, Via Natural or Artificial Opening (ICD-10-PCS; 2020-10-30)
PROC: 5A1935Z Respiratory Ventilation, Less than 24 Consecutive Hours (ICD-10-PCS; 2020-10-30)
PROC: 06HT33Z Insertion of Infusion Device into Right Foot Vein, Percutaneous Approach (ICD-10-PCS; 2020-10-30)
DX: G40.509 Epileptic seizures related to external causes, not intractable, without status epilepticus (principal); D72.829 Elevated white blood cell count, unspecified
CPT/HCPCS: 31500; 36415; 51702; 62270; 70450; 71045; 80048; 80076; 80307; 80320; 80329; 81003; 82805; 82945; 82947; 83605; 83735; 83880; 84145; 84157; 84484; 85025; 85610; 85730; 86403; 87040; 87070; 87804; 89050; 93005; 94002; 99291; C9113; J0133; J0330; J0696; J2250; J3370; J3411; J7030; Q2009; U0003